=== PATIENT | male | born 1950 | race Caucasian/White ===

== ENCOUNTER 2017-11-23 05:29 | Day surgery (SDC) | payer MEDICARE, OTHER ==
[2017-11-21 16:55] LABS: BASOPHILS % (AUTO) 0.5 % (0-1); EOSINOPHILS # (AUTO) 0.3 X10'3 (0-0.9); EOSINOPHILS % (AUTO) 3.6 % (0-6); HEMATOCRIT 34.9 % (42.0-52.0); HEMOGLOBIN 12.1 g/dl (14.0-17.9); LYMPHOCYTES % (AUTO) 35.7 % (21-51); MEAN CORPUSCULAR HEMOGLOBIN 31.8 PG (27.0-31.0); MEAN CORPUSCULAR HGB CONC 34.6 % (33.0-36.5); MEAN PLATELET VOLUME 6.7 FL (7.4-10.4); MONOCYTES # (AUTO) 0.7 X10'3 (0-0.9); MONOCYTES % (AUTO) 7.9 % (2-12); NEUTROPHILS # (AUTO) 4.4 X10'3 (1.8-7.7); NEUTROPHILS % (AUTO) 52.3 % (42-75); PLATELET COUNT 269 X10'3 (140-440); RED CELL DISTRIBUTION WIDTH 12.7 % (11.5-14.5); WHITE BLOOD COUNT 8.4 X10'3 (4.5-11.0)
[2017-11-21 17:05] LABS: PARTIAL THROMBOPLASTIN TIME 25 SECONDS (22-32); PROTHROMBIN TIME 10.7 SECONDS (9.0-12.0)
[2017-11-21 17:08] LABS: ALANINE AMINOTRANSFERASE 26 U/L (12-78); ALBUMIN 3.6 G/DL (3.4-5.0); ALBUMIN/GLOBULIN RATIO 0.9 (1.1-1.5); ALKALINE PHOSPHATASE 62 IU/L (46-116); ANION GAP 10 (8-16); ASPARTATE AMINO TRANSFERASE 21 U/L (10-37); BILIRUBIN,TOTAL 0.4 MG/DL (0.1-1.0); BLOOD UREA NITROGEN 26 MG/DL (7-18); BUN/CREATININE RATIO 14.2 (5.4-32.0); CALCIUM 8.9 MG/DL (8.5-10.1); CHLORIDE 105 MMOL/L (99-107); CREATININE 1.83 MG/DL (0.60-1.10); GLUCOSE 84 MG/DL (70-104); POTASSIUM 3.8 MMOL/L (3.5-5.1); SODIUM 143 MMOL/L (135-145); TOTAL PROTEIN 7.4 G/DL (6.4-8.2); eGFR 37 ML/MIN
[~2017-11-23] VITALS: Ht 180.3 cm; Wt 138.4 kg
[2017-11-23] VITALS (11 sets, daily range): BP systolic 101–140; BP diastolic 48–81
[~2017-11-23 05:29] MED LIST: ASPI81TA30 PO; ATOR20TA PO; VALS1TAB81 PO
[2017-11-23] MEDS ORDERED: normal saline 1000ml 1,000 ML IV ONE (05:50)
[2017-11-23] MEDS ORDERED: diphenhydrAMINE 25mg capsule PO ONE (05:55)
[2017-11-23] MEDS ORDERED: LORazepam 0.5 MG tablet PO ONE (05:55)
[2017-11-23] MEDS ORDERED: HYDR-4069 PO (06:11)
[2017-11-23] MEDS ORDERED: HYDR25TA4 PO (06:23)
[2017-11-23] MEDS ORDERED: MULT-1085 PO (06:23)
[2017-11-23] MEDS ORDERED: FLO0.4C PO (06:23)
[2017-11-23] MEDS ORDERED: GABA300C PO (06:23)
[2017-11-23] MEDS ORDERED: OMEG1CAP2 PO (06:23)
[2017-11-23] MEDS ORDERED: FURO-150 PO (06:23)
[2017-11-23] MEDS ORDERED: POTA20PA3 PO (06:23)
[2017-11-23] MEDS ORDERED: iohexol 350MG/ML 100ml bottle IV ONE (07:42)
[2017-11-23] MEDS ORDERED: iohexol 350 MG/ML 50ML vial IV ONE (07:42)
[2017-11-23] MEDS ORDERED: LIDOcaine 1%/PF (10mg/ml) 5ml vial ONE (07:42)
[2017-11-23] MEDS ORDERED: LIDOcaine 1% 30ml preserv. free vial ONE (07:43)
[2017-11-23] MEDS ORDERED: fentaNYL/PF 50MCG/1 ML 2ML syringe ONE (08:35)
[2017-11-23] MEDS ORDERED: midazolam 2 mg/2 ml injection ONE (08:35)
[2017-11-23] MEDS ORDERED: proCHLORperazine 10 MG/2 ml inj ONE (08:55)
[2017-11-23] MEDS ORDERED: acetaminophen 325mg tablet PO PRN (09:50)
[2017-11-23] MEDS ORDERED: HYDROcodone/acetaminophen 10/325mg tab PO PRN (09:50)
[2017-11-23] MEDS ORDERED: proCHLORperazine 10 MG/2 ml inj IV PRN (09:50)
[2017-11-23] MEDS ORDERED: nitroGLYCERIN 0.4mg SUBLingual tab SL PRN (09:50)
[2017-11-23] MEDS ORDERED: HYDROcodone/acetaminophen 5mg/325mg tablet PO PRN (09:50)
[2017-11-23] MEDS ORDERED: ondansetron/PF 4mg/2ml inj IV PRN (09:50)
[2017-11-23] MEDS ORDERED: OXAZEpam 15mg capsule PO PRN (09:50)
== END 2017-11-23 15:55 | disposition home or self-care (01) ==
LOC: SSTAY O 05:29
PROVIDERS: ATTEND Internal Medicine Cardiovascular Disease
DX: I25.10 Atherosclerotic heart disease of native coronary artery without angina pectoris (principal); I10 Essential (primary) hypertension; G47.33 Obstructive sleep apnea (adult) (pediatric); I42.8 Other cardiomyopathies; J44.9 Chronic obstructive pulmonary disease, unspecified; M19.90 Unspecified osteoarthritis, unspecified site; Z79.82 Long term (current) use of aspirin; Z72.89 Other problems related to lifestyle; Z79.899 Other long term (current) drug therapy; Z98.890 Other specified postprocedural states
CPT/HCPCS: 36415; 71046; 80053; 85025; 85610; 85730; 93005; 93458; 99152; 99153; A6257; C1760; C1769; J0780; J1644; J2250; J3010; J3490; J7030; Q0163; Q9967; A4620; J2001

== ENCOUNTER 2023-09-15 04:42 | Emergency (ER) | payer MEDICARE, OTHER ==
[~2023-09-15] VITALS: Ht 180.3 cm; Wt 118.2 kg
[~2023-09-15 04:42] MED LIST changes: +FLO0.4C PO; +FURO-150 PO; +GABA300C PO; +HYDR25TA4 PO; +HYDR25TA90 PO; +MULT-1085 PO; +OMEG1CAP2 PO; +POTA20PA40 PO
[2023-09-15 05:21] LABS: BASOPHILS # (AUTO) 0.1 X10'3 (0-0.2); EOSINOPHILS # (AUTO) 0.2 X10'3 (0-0.9); EOSINOPHILS % (AUTO) 3.9 % (0-6); HEMATOCRIT 40.3 % (42.0-52.0); HEMOGLOBIN 13.9 g/dl (14.0-17.9); LYMPHOCYTES % (AUTO) 33.4 % (21-51); MEAN CORPUSCULAR HEMOGLOBIN 31.9 PG (27.0-31.0); MEAN CORPUSCULAR HGB CONC 34.5 g/dL (33.0-36.5); MEAN CORPUSCULAR VOLUME 92.4 FL (78-98); MEAN PLATELET VOLUME 6.4 FL (7.4-10.4); MONOCYTES # (AUTO) 0.4 X10'3 (0-0.9); MONOCYTES % (AUTO) 7.3 % (2-12); NEUTROPHILS # (AUTO) 3.3 X10'3 (1.8-7.7); NEUTROPHILS % (AUTO) 54.4 % (42-75); PLATELET COUNT 255 X10'3 (140-440); RED BLOOD COUNT 4.36 X10'6 (4.70-6.10)
[2023-09-15 05:48] LABS: ALBUMIN 3.7 G/DL (3.4-5.0); ANION GAP 9 (8-16); BLOOD UREA NITROGEN 27 MG/DL (7-18); BUN/CREATININE RATIO 19.9 (10.0-20.0); CALCIUM 8.7 MG/DL (8.5-10.1); CHLORIDE 109 MMOL/L (99-107); CREATININE 1.36 MG/DL (0.60-1.10); GLUCOSE 103 MG/DL (70-104); MAGNESIUM 2.1 MG/DL (1.5-2.4); POTASSIUM 3.9 MMOL/L (3.5-5.1); PRO BRAIN NATRIURETIC PEPTIDE 87 PG/ML (0-125); SODIUM 144 MMOL/L (135-145); TOTAL CARBON DIOXIDE 26.3 MMOL/L (24-32); eCRCL 52 ML/MIN; eGFR 52 ML/MIN
[2023-09-15] MEDS ORDERED: GABA-535 PO (05:54)
[2023-09-15] MEDS ORDERED: ASPI-611 PO (05:54)
[2023-09-15] MEDS ORDERED: LOSA1TAB39 PO (05:54)
[2023-09-15 08:33] VITALS: BP 142/80; PULSE 61; RESP 16; TEMP 98.4; O2SAT 97
== END 2023-09-15 08:36 | disposition home or self-care (01) ==
LOC: ER 04:43
DX: R53.1 Weakness (principal); R06.00 Dyspnea, unspecified; E78.00 Pure hypercholesterolemia, unspecified; I10 Essential (primary) hypertension; G47.33 Obstructive sleep apnea (adult) (pediatric); Z88.8 Allergy status to other drugs, medicaments and biological substances; Z79.899 Other long term (current) drug therapy
CPT/HCPCS: 36415; 80048; 83735; 83880; 84484; 85025; 93005; 99285